=== PATIENT | female | born 1980 | race Asian ===

== ENCOUNTER → 2017-11-18 | Outpatient (CLI) | payer OTHER | END | disposition home or self-care (01) | LOC: C.PATHSPEC 16:26 | PROVIDERS: ATTEND Obstetrics & Gynecology | DX: N84.1 Polyp of cervix uteri (principal) ==

== ENCOUNTER 2023-03-18 10:27 | Inpatient (IN) ==
[2023-03-19] MEDS ORDERED: OXYTOCIN 30 UNITS/500 ML BAG IV PRN ×2 (09:33→20:46)
[2023-03-19] MEDS ORDERED: DINOPROSTONE 10 MG INSERT PV ONE (09:33)
[2023-03-19] MEDS ORDERED: LIDOCAINE 1% LOCAL 20 ML VIAL INFIL PRN (09:33)
--- NOTE | 2023-03-19 09:39 | History & Physical Report ---
Date of Service March 19, 2023 Assessment & Plan (1) Hyperthyroidism: (2) AMA (advanced maternal age) primigravida 35+: Plan: 42 yo at 40 wks, IOL VSS Afebrile FHR reassuring GBS neg Cervix unfavorable Plan to admit, monitor, labs, Cervidil for cervical ripening All questions were answered. Admission and Anticipated Discharge Date Admission Date: March 19, 2023 History of Present Illness Primary Care Provider: Yu Bullard PA-C Patient is a 42 yo at 40 wks, admitted for IOL at term for AMA No complaints No ctxs/ LOF/VB +FM's Her has been complicated by 1) AMA, NIPT negative/ low risk 2) Hyperthyroidism, did not need medication Allergies Allergy/AdvReac Type Severity Reaction Status Date / Time No Known Drug Allergies Allergy Unknown Verified 03/19/23 08:34 adhesive tape AdvReac Severe Rash Verified 03/03/23 15:52 seafood Allergy Unknown Uncoded 03/19/23 08:34 Home Medications Medication Instructions Recorded Confirmed Type prenat.vits,woo,pjl-kvaj-vhctv 1 tab PO DAILY 03/03/23 03/19/23 History Patient History Surgical History H/O wisdom tooth extraction Family History Other Family history of hypertension in father Social History Smoking Status: Never smoker Hx Alcohol Use: No Hx Substance Use: No Preferred Language: Mandarin [place]ian Communication Ability: Effective Vehicle Assembler Required: No Beliefs That Will Affect Care: None marital status: Current Living Situation: Spouse Other Information That Helps Us Care for You: No Feels Safe at Home: Yes Safety Concerns: Feels Safe At This Time Assistive Devices: None 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 No h/o STD's Review of Systems as per Subjective / HPI Physical Exam Constitutional: WD/WN, vitals as above well developed, well nourished and comfortable Gastrointestinal (Abdomen): normal bowel sounds, soft, nontender, no hepatosplenomegaly (Angel[place] 7 lb) Genitourinary: normal external appearance OB Exam Abdomen: + vertex Manual OB Exam: + cervical dilation 1 cm, + cervical effacement 30% and + station high (ballotable) OB Exam Monitor Tracing: + external uterine monitor used and + category I Bed side US: Vertex, FHR 140's, multiple movements seen, AFV normal EFW: 3324 gr Results & Data Vital Signs (Past 12 Hours) Vital Signs Temp Pulse Resp BP 03/19/23 08:32 37.0 C 73 20 111/71
[2023-03-19 10:13] LABS: Hematocrit (blood only) 35.8 % (37.0-47.0); Hemoglobin 12.6 g/dl (12.0-16.0); Mean Corpuscular Hemoglobin 31.7 pg (25.0-34.0); Mean Corpuscular Hgb Conc 35.2 g/dL (32.0-36.0); Mean Corpuscular Volume 89.9 fL (80.0-100.0); Mean Platelet Volume 10.1 fL (9.4-12.4); Platelet Count 219 K/uL (130-400); RDW Coefficient of Variation 13.3 % (11.5-14.5); RDW Standard Deviation 43.8 fL (36.4-46.3); Red Blood Count 3.98 M/uL (4.20-5.40); White Blood Count 7.69 K/ul (4.8-10.8)
[2023-03-19 10:21] LABS: Albumin Globulin Ratio 1.3 (0.9-2); Albumin Level 3.6 gm/dl (3.4-5.0); BUN Creatinine Ratio 22.4 (10-20); Bilirubin,Total 0.4 mg/dl (0.2-1.0); Creatinine Clr Calc Pharmacy 111.9 ml/min; Est GFR (African American) 132.7 ml/min; Est GFR (Non-African American) 114.5 ml/min; Globulin 2.8 gm/dl (2.5-4.0); Potassium 3.6 mmol/L (3.5-5.1); Total Protein 6.4 gm/dl (6.0-8.3)
--- NOTE | 2023-03-19 18:16 | Obstetrical Progress Note ---
Date of Service March 19, 2023 Assessment & Plan Admission and Anticipated Discharge Date Admission Date: March 19, 2023 Subjective Patient is reevaluated She started to feel pain, asking whether it is appropriate to have epidural VE; 4/60%/-2, very soft and stretchable, bulging bag FHR categ I [place] ctxs q 2-6 min Plan for epidural for pain then AROM Results & Data Vital Signs (Past 12 Hours) Vital Signs Temp Pulse Resp BP 03/19/23 14:59 69 03/19/23 14:59 112/73 03/19/23 11:18 20 03/19/23 11:18 37.2 C 20 03/19/23 11:18 72 03/19/23 11:18 99/63 L 03/19/23 08:32 37.0 C 73 20 111/71
[2023-03-19] MEDS: LACTATED RINGER'S 1,000 ML IV PRN ×2 (18:41→19:43)
[2023-03-19] MEDS ORDERED: SODIUM CHLORIDE 0.9% PF INJ 10 ML VIAL ONE (18:50)
[2023-03-19] MEDS ORDERED: fentaNYL citrate PF 100 MCG/2 ML VIAL ONE (18:50)
[2023-03-19] MEDS ORDERED: BUPIVACAINE 0.25% PF 30 ML VIAL ONE (18:51)
[2023-03-19] MEDS ORDERED: LIDOCAINE 2%/EPINEPHRINE 1:200,000 20 ML PF ONE (18:51)
[2023-03-19] MEDS ORDERED: fentaNYL 2MCG/ML ROPIVACAINE 1.25MG/ML 100 ML BAG EPI ONE (18:51)
[2023-03-19] MEDS ORDERED: ePHEDrine sulfate 50 MG/ML AMP ONE (19:04)
--- NOTE | 2023-03-19 19:35 | Anesthesiology Consultation ---
Date of Service March 19, 2023 Assessment & Plan Chart Review Chart Review: Acceptable Risk for Labor Epidural Consults Requested none ASA ASA2 Proposed Anesthesia Anesthesia Type: Labor Epidural Risk / Benefits Reviewed With: PT / POA / Parent / Guardian, Accepts Plan and Informed Consent Obtained History Height/Weight Height: 5 ft 1 in Weight: 67.132 kg Allergies Allergy/AdvReac Type Severity Reaction Status Date / Time No Known Drug Allergies Allergy Unknown Verified 03/19/23 08:34 adhesive tape AdvReac Severe Rash Verified 03/03/23 15:52 seafood Allergy Unknown Uncoded 03/19/23 08:34 Medications Home Medications Medication Instructions Recorded Confirmed Last Taken prenat.vits,woo,ess-lgqs-bntfy 1 tab PO DAILY 03/03/23 03/19/23 03/18/23 09:00 Active Medications Generic Name Dose Route Start Last Admin Trade Name Freq PRN Reason Stop Dose Admin Lactated Ringer's 1,000 mls @ 150 mls/hr 03/19/23 09:33 03/19/23 19:43 Lr IV 03/21/23 09:32 150 mls/hr .[id number] PRN Administration L&D Protocol Protocol NPO Date Last Intake of Fluids: 03/19/23 Time Last Intake of Fluids: 18:00 Date Last Intake of Solids: 03/19/23 Time Last Intake of Solids: 07:00 Past Medical History Medical History (Updated 03/19/23 @ 19:33 by Susan Diop DO) Graves disease Hyperthyroidism Exercise / Class Metabolic Activity II 4-5 Yardwork/Stairs/Walk up hill Past Family History Family History Other Family history of hypertension in father Past Surgical History Surgical History H/O wisdom tooth extraction Past Anesthesia History No Hx of Anesthesia Complications and No Family Hx of Anesthesia Complications History of PONV No Hx of PONV and No Hx of Motion Sickness Social History Smoking Status: Never smoker Hx Alcohol Use: No Alcohol type: beer Hx Substance Use: No substance use type: does not use Physical Exam Vital Signs Last Vital Signs Temp 37.2 C 03/19/23 11:18 Pulse 74 03/19/23 19:31 Resp 20 03/19/23 11:18 BP 109/70 03/19/23 19:27 Pulse Ox 98 03/19/23 19:31 ENMT Mouth: + small oral opening; no TMJ abnormality Thyromental Distance: > or= 3.5 Finger Breadths Mallampati Class: III Neck normal visual inspection and trachea midline; neck extension not limited Respiratory normal respiratory effort Auscultation: lungs clear to auscultation bilaterally Cardiovascular Rate/Rhythm: regular rate and regular rhythm Heart Sounds: no murmur Musculoskeletal Spine: normal cervical ROM Extremities: full ROM of extremities Neurologic moves all extremities Motor/Sensory: + sensory deficit (rle radic l4and 5) Psychiatric Orientation: alert and oriented x 3 Testing Laboratory Results 03/19/23 09:46 03/19/23 09:46
[2023-03-19] MEDS ORDERED: ONDANSETRON INJ 2 MG/ML 2 ML VIAL IV PRN (20:10)
[2023-03-19] MEDS ORDERED: ROPIVACAINE 0.5% PF 5 MG/ML 20 ML VIAL EPI PRN (20:10)
[2023-03-19] MEDS ORDERED: LIDOCAINE 2%/EPINEPHRINE 1:200,000 20 ML PF EPI STA (20:10)
[2023-03-19] MEDS ORDERED: METOCLOPRAMIDE HCL 20 MG in SODIUM CHLORIDE 0.9% 50 ML IV PRN (20:10)
[2023-03-19] MEDS ORDERED: fentaNYL citrate PF 100 MCG/2 ML VIAL EPI PRN (20:10)
[2023-03-19] MEDS ORDERED: diphenhydrAMINE 50 MG/ML VIAL IV PRN (20:10)
[2023-03-19] MEDS ORDERED: SODIUM CHLORIDE 0.9% PF INJ 10 ML VIAL EPI STA (20:10)
[2023-03-19] MEDS ORDERED: BUPIVACAINE 0.25% PF 30 ML VIAL EPI PRN (20:10)
[2023-03-19] MEDS ORDERED: NALOXONE HCL 1 MG in SODIUM CHLORIDE 0.9% 1000ML 1,000 ML IV PRN (20:10)
[2023-03-19] MEDS ORDERED: fentaNYL citrate PF 100 MCG/2 ML VIAL EPI STA (20:10)
[2023-03-19] MEDS ORDERED: ePHEDrine sulfate 50 MG/ML AMP IV PRN (20:10)
[2023-03-19] MEDS ORDERED: BUPIVACAINE 0.25% PF 30 ML VIAL EPI STA (20:10)
[2023-03-19] MEDS ORDERED: NALOXONE HCL 0.4 MG/1 ML VIAL/CARP IV PRN (20:10)
[2023-03-19] MEDS ORDERED: fentaNYL 2MCG/ML ROPIVACAINE 1.25MG/ML 100 ML BAG EPI PRN (20:10)
[2023-03-19] MEDS ORDERED: NALBUPHINE HCL INJ 10 MG/ML AMP IV PRN (20:10)
[2023-03-19] MEDS ORDERED: SODIUM CHLORIDE 0.9% PF INJ 10 ML VIAL EPI PRN (20:10)
[2023-03-19] MEDS ORDERED: LIDOCAINE 2% MPF LOCAL 5 ML VIAL EPI PRN (20:10)
--- NOTE | 2023-03-19 20:46 | Obstetrical Progress Note ---
Date of Service March 19, 2023 Assessment & Plan Admission and Anticipated Discharge Date Admission Date: March 19, 2023 Subjective Patient is comfortable now Received epidural for pain VE; 5/ 50%/ -2, bulging bag, AROM'ed claer fluid, cervidil was removed FHR categ I [place] ctxs q 2-5 min Continue to monitor closely Anticipate Results & Data Vital Signs (Past 12 Hours) Vital Signs Temp Pulse Resp BP Pulse Ox 03/19/23 19:00 36.5 C 18 03/19/23 20:41 98 03/19/23 20:41 61 03/19/23 20:39 58 L 03/19/23 20:39 100/57 L 03/19/23 20:36 98 03/19/23 20:36 62 03/19/23 20:32 59 L 03/19/23 20:32 100/56 L 03/19/23 20:31 98 03/19/23 20:31 61 03/19/23 20:26 99 03/19/23 20:26 65 03/19/23 20:27 66 03/19/23 20:27 93/54 L 03/19/23 20:21 98 03/19/23 20:21 63 03/19/23 20:22 63 03/19/23 20:22 98/56 L 03/19/23 20:17 62 03/19/23 20:17 104/58 L 03/19/23 20:16 99 03/19/23 20:16 67 03/19/23 20:14 67 03/19/23 20:14 107/59 L 03/19/23 20:11 99 03/19/23 20:11 67 03/19/23 20:10 69 03/19/23 20:10 102/61 03/19/23 20:07 67 03/19/23 20:07 103/60 03/19/23 20:06 99 03/19/23 20:06 80 03/19/23 20:05 71 03/19/23 20:05 104/61 03/19/23 20:03 80 03/19/23 20:03 109/59 L 03/19/23 20:01 99 03/19/23 20:01 76 03/19/23 20:01 104/60 03/19/23 20:00 18 03/19/23 20:00 18 05 19:59 80 0505 19:59 106/59 L 05 19:52 18 05 19:52 18 05 19:57 81 05 19:57 106/58 L 03/19/23 19:56 99 05 19:56 71 05 19:56 107/55 L 05 19:53 76 05 19:53 99/63 L 05 19:51 98 05 19:51 75 05 19:52 80 05 19:52 99/64 L 05 19:46 98 05 19:46 79 05 19:41 98 05 19:41 80 05 19:36 98 05 19:36 73 05 19:31 98 05 19:31 74 05 19:27 75 0505 19:27 109/70 05 19:26 99 0505 19:26 76 0505 19:16 98 0505 19:16 75 0505 19:11 98 05 19:11 74 05 19:06 99 05 19:06 77 05 19:01 98 05 19:01 73 05 18:56 98 05 18:56 70 05 18:57 70 0505 18:57 113/69 05 14:59 69 0505 14:59 112/73 05 11:18 20 05 11:18 37.2 C 20 03/19/23 11:18 72 05 11:18 99/63 L
--- NOTE | 2023-03-19 22:29 | Obstetrical Progress Note ---
Date of Service March 19, 2023 Assessment & Plan Admission and Anticipated Discharge Date Admission Date: March 19, 2023 Subjective Patient is reevaluated Comfortable VE: 6-7/ 80%/-1, LOP FHR categ I [place] cxts q 2-4 min Continue to monitor closely Results & Data Vital Signs (Past 12 Hours) Vital Signs Temp Pulse Resp BP Pulse Ox 03/19/23 19:00 36.5 C 18 03/19/23 22:10 18 03/19/23 22:10 36.7 C 18 03/19/23 22:21 98 03/19/23 22:21 69 03/19/23 22:20 65 03/19/23 22:20 94/55 L 03/19/23 22:16 97 03/19/23 22:16 72 03/19/23 22:11 97 03/19/23 22:11 68 03/19/23 22:06 96 03/19/23 22:06 78 03/19/23 22:04 68 03/19/23 22:04 91/50 L 03/19/23 22:01 96 03/19/23 22:01 68 03/19/23 21:56 98 03/19/23 21:56 75 03/19/23 21:04 16 03/19/23 21:04 16 03/19/23 21:51 96 03/19/23 21:51 67 03/19/23 21:49 67 03/19/23 21:49 92/50 L 03/19/23 21:46 97 03/19/23 21:46 67 03/19/23 21:41 96 03/19/23 21:41 68 03/19/23 21:36 96 03/19/23 21:36 67 03/19/23 21:34 67 03/19/23 21:34 88/51 L 03/19/23 21:31 97 03/19/23 21:31 67 03/19/23 21:26 97 03/19/23 21:26 68 03/19/23 21:21 97 03/19/23 21:21 66 03/19/23 21:16 98 03/19/23 21:16 67 03/19/23 21:17 68 03/19/23 21:17 107/54 L 03/19/23 21:12 68 03/19/23 21:12 104/65 0505 21:11 98 0505 21:11 68 05 21:10 68 05 21:10 107/64 05 21:08 69 05 21:08 106/68 05 21:06 99 05 21:06 68 05 21:06 109/65 0505 21:04 67 0505 21:04 115/70 05 21:01 100 05 21:01 61 05 21:00 62 0505 21:00 100/62 05 20:58 57 L 05 20:58 82/52 L 05 20:56 98 05 20:56 60 05 20:55 68 0505 20:55 75/49 L 0505 20:51 97 0505 20:51 62 0505 20:46 97 0505 20:46 68 0505 20:41 98 0505 20:41 61 0505 20:39 58 L 0505 20:39 100/57 L 0505 20:36 98 0505 20:36 62 05 20:32 59 L 0505 20:32 100/56 L 0505 20:31 98 0505 20:31 61 0505 20:26 99 0505 20:26 65 0505 20:27 66 0505 20:27 93/54 L 0505 20:21 98 0505 20:21 63 0505 20:22 63 0505 20:22 98/56 L 0505 20:17 62 0505 20:17 104/58 L 0505 20:16 99 0505 20:16 67 0505 20:14 67 05/05 20:14 107/59 L 0505 20:11 99 0504/06 20:11 67 05/05/23 20:10 69 05 20:10 102/61 05 20:07 67 05 20:07 103/60 05 20:06 99 05 20:06 80 05 20:05 71 03/19/23 20:05 104/61 05 20:03 80 05 20:03 109/59 L 03/19/23 20:01 99 05 20:01 76 05 20:01 104/60 05 20:00 18 05 20:00 18 03/19/23 19:59 80 05 19:59 106/59 L 05 19:52 18 05 19:52 18 03/19/23 19:57 81 05 19:57 106/58 L 03/19/23 19:56 99 05 19:56 71 05 19:56 107/55 L 05 19:53 76 05 19:53 99/63 L 05 19:51 98 05 19:51 75 05 19:52 80 05 19:52 99/64 L 05 19:46 98 05 19:46 79 05 19:41 98 05 19:41 80 05 19:36 98 05 19:36 73 05 19:31 98 0505 19:31 74 0505 19:27 75 0505 19:27 109/70 0505 19:26 99 0505 19:26 76 0505 19:16 98 05 19:16 75 05 19:11 98 0505 19:11 74 05 19:06 99 05 19:06 77 0505 19:01 98 05 19:01 73 0505 18:56 98 05 18:56 70 05 18:57 70 03/19/23 18:57 113/69 03/19/23 14:59 69 03/19/23 14:59 112/73 03/19/23 11:18 20 03/19/23 11:18 37.2 C 20 03/19/23 11:18 72 03/19/23 11:18 99/63 L
[2023-03-20] MEDS: LACTATED RINGER'S 1,000 ML IV PRN (00:21)
[2023-03-20] MEDS ORDERED: MINERAL OIL 30 ML UDC ONE (01:18)
--- NOTE | 2023-03-20 01:23 | Obstetrical Progress Note ---
Date of Service March 20, 2023 Assessment & Plan Admission and Anticipated Discharge Date Admission Date: March 19, 2023 Subjective FHR had been categ I and had one deceleration Head is found to be low in vagina, +3 changed her position and FHR recovered to 130's with moderate variability. Start pushing. Results & Data Vital Signs (Past 12 Hours) Vital Signs Temp Pulse Resp BP Pulse Ox 03/19/23 19:00 36.5 C 18 03/20/23 01:16 74 100 03/20/23 01:11 94 H 100 03/20/23 01:06 74 98 03/20/23 01:03 71 110/63 03/20/23 01:01 67 95 03/20/23 00:56 63 96 03/20/23 00:51 63 96 03/20/23 00:50 66 92/56 L 03/20/23 00:48 64 76/45 L 03/20/23 00:46 62 96 03/20/23 00:37 18 03/20/23 00:37 36.7 C 18 03/20/23 00:41 63 97 03/20/23 00:36 64 97 03/20/23 00:33 61 98/60 L 03/20/23 00:31 64 97 03/20/23 00:26 61 96 03/20/23 00:21 63 96 03/20/23 00:19 69 89/53 L 03/20/23 00:16 64 96 03/20/23 00:11 64 97 03/20/23 00:06 66 97 03/20/23 00:03 66 91/52 L 03/20/23 00:01 65 97 03/19/23 23:53 16 03/19/23 23:53 16 03/19/23 23:56 97 03/19/23 23:56 66 03/19/23 23:51 97 03/19/23 23:51 68 03/19/23 23:49 66 03/19/23 23:49 103/66 03/19/23 23:46 98 03/19/23 23:46 70 03/19/23 23:41 97 03/19/23 23:41 67 03/19/23 23:36 97 03/19/23 23:36 69 03/19/23 23:34 64 03/19/23 23:34 101/60 05 23:31 97 05 23:31 69 05 23:26 98 05 23:26 67 05 23:21 98 05 23:21 65 05 23:19 62 05 23:19 96/54 L 05 23:16 97 05 23:16 64 05 23:11 97 05 23:11 70 05 23:04 16 05 23:04 36.8 C 16 03/19/23 23:06 98 05 23:06 68 05 23:03 61 05 23:03 93/58 L 03/19/23 23:01 97 05 23:01 67 05 22:56 97 05 22:56 63 05 22:51 97 05 22:51 62 05 22:48 63 0505 22:48 87/52 L 05 22:46 97 0505 22:46 63 0505 22:41 97 05 22:41 65 05 22:36 98 05 22:36 67 05 22:33 70 05 22:33 92/54 L 05 22:31 98 05 22:31 70 05 22:26 97 05 22:26 67 0505 22:10 18 05 22:10 36.7 C 18 05 22:21 98 0505 22:21 69 0505 22:20 65 0505 22:20 94/55 L 05 22:16 97 05 22:16 72 05 22:11 97 05 22:11 68 05 22:06 96 05 22:06 78 05 22:04 68 05 22:04 91/50 L 05 22:01 96 05 22:01 68 0505 21:56 98 0505 21:56 75 0505 21:04 16 05 21:04 16 05 21:51 96 05 21:51 67 05 21:49 67 0505 21:49 92/50 L 0505 21:46 97 0505 21:46 67 0505 21:41 96 0505 21:41 68 0505 21:36 96 0505 21:36 67 0505 21:34 67 0505 21:34 88/51 L 05 21:31 97 0505 21:31 67 05 21:26 97 05 21:26 68 05 21:21 97 0505 21:21 66 0505 21:16 98 05 21:16 67 0505 21:17 68 05 21:17 107/54 L 0505 21:12 68 0505 21:12 104/65 0505 21:11 98 05 21:11 68 0505 21:10 68 05 21:10 107/64 05 21:08 69 0505 21:08 106/68 0505 21:06 99 0505 21:06 68 0505 21:06 109/65 0505 21:04 67 0505 21:04 115/70 0505 21:01 100 0505 21:01 61 0505 21:00 62 0505 21:00 100/62 0505 20:58 57 L 0505 20:58 82/52 L 0505 20:56 98 0505 20:56 60 05/05 20:55 68 0505 20:55 75/49 L 0505 20:51 97 0505 20:51 62 05/05 20:46 97 05 20:46 68 05 20:41 98 05 20:41 61 05 20:39 58 L 05 20:39 100/57 L 05 20:36 98 05 20:36 62 05 20:32 59 L 05 20:32 100/56 L 05 20:31 98 05 20:31 61 05 20:26 99 05 20:26 65 05 20:27 66 05 20:27 93/54 L 05 20:21 98 05 20:21 63 05 20:22 63 05 20:22 98/56 L 05 20:17 62 05 20:17 104/58 L 05 20:16 99 05 20:16 67 05 20:14 67 05 20:14 107/59 L 05 20:11 99 05 20:11 67 05 20:10 69 05 20:10 102/61 05 20:07 67 05 20:07 103/60 05 20:06 99 05 20:06 80 05 20:05 71 05 20:05 104/61 05 20:03 80 0505 20:03 109/59 L 05 20:01 99 05 20:01 76 0505 20:01 104/60 0505 20:00 18 05 20:00 18 05 19:59 80 0505 19:59 106/59 L 05 19:52 18 05 19:52 18 05 19:57 81 0505 19:57 106/58 L 0505 19:56 99 05 19:56 71 05 19:56 107/55 L 05 19:53 76 0505 19:53 99/63 L 05 19:51 98 05 19:51 75 05 19:52 80 05 19:52 99/64 L 05 19:46 98 05 19:46 79 05 19:41 98 05 19:41 80 05 19:36 98 05 19:36 73 05 19:31 98 05 19:31 74 0505 19:27 75 05 19:27 109/70 05 19:26 99 05 19:26 76 05 19:16 98 05 19:16 75 05 19:11 98 05 19:11 74 05 19:06 99 05 19:06 77 0505 19:01 98 0505 19:01 73 05 18:56 98 0505 18:56 70 0505 18:57 70 0505 18:57 113/69 05 14:59 69 05/04/06 14:59 112/73
[2023-03-20] MEDS ORDERED: ceFAZolin 2000MG 2,000 MG/15 ML SYR IV ONE (02:30)
[2023-03-20] MEDS ORDERED: HYDROCORTISONE ACETATE 25 MG SUPP PR PRN (03:03)
[2023-03-20] MEDS ORDERED: OXYTOCIN 30 UNITS/500 ML BAG IV PRN (03:03)
[2023-03-20] MEDS ORDERED: BENZOCAINE 20% AER SPR 82.5 GM CAN EXT PRN (03:03)
[2023-03-20] MEDS ORDERED: bisacodyL 10 MG SUPP PR PRN (03:03)
[2023-03-20] MEDS ORDERED: ACETAMINOPHEN 325 MG TAB PO PRN (03:03)
[2023-03-20] MEDS ORDERED: DIPHTHERIA/TETANUS/PERTUSSIS 0.5mL SYR/VIAL (Age 7+yrs) IM ONE (03:03)
[2023-03-20] MEDS ORDERED: MEASLES, MUMPS & RUBELLA VIRUS VIAL SQ ONE (03:03)
[2023-03-20] MEDS ORDERED: oxyCODONE/ACETAMINOPHEN 5mg/325mg TAB PO PRN (03:03)
--- NOTE | 2023-03-20 03:08 | Delivery Summary ---
Vaginal Delivery Summary Date of Service March 20, 2023 Vaginal Delivery Summary The patient was found to be fluid dilated and desired to push. She pushed for about an hour and delivered the head without difficulty. Shoulders were delivered with minimal traction and there was a nuchal cord around the neck x1 and the body cord. Those were reduced while delivering the body and baby was handed off to the mother. The mouth and nose were suctioned and cord was clamped times and cut. Then the cord blood was obtained. The vagina and perineum were checked for lacerations. There was a 3rd degree perineal laceration. It was confirmed with rectal exam. Allis clamps were used to grasp external sphincter muscles on both sides and brought to the midline. Then cervical muscles were repaired with [id number] stitches x4 around those clamps. Then the clamps were removed and rectal exam was repeated good sphincter integrity and tone were noted. The gloves were changed and perineal body muscles were reapproximated supporting the sphincter area. Then another 2-0 Vicryl was used to repair vagina mucosa on both sides of vagina sulcus brought to the midline. Then the skin was closed in a subcuticular fashion with the same Vicryl. Excellent hemostasis was achieved. Rest of the vagina and labia were intact. The placenta was found to be in the vagina, delivered spontaneously as intact and complete. Uterus was explored and found to be empty, lower segment was cleared of all clots and debris's, fundus was firm and EBL was 300 mL. The mom and baby tolerated procedure well. The sponge needle instrument count was correct x2. It was a viable female , Apgars 8/9 and weight is pending. No complications happened and I was present during whole procedure.
--- NOTE | 2023-03-20 05:23 | Anesthesia Procedure Note ---
Date of Service March 20, 2023 Anesthesia Post Epidural Note Vital Signs Vital Signs: Temp Pulse Resp BP Pulse Ox 36.8 C 88 16 80/51 L 99 03/20/23 02:56 03/20/23 05:13 03/20/23 04:56 03/20/23 05:13 03/20/23 02:56 Pain Intensity Abdomen: Pain Intensity: 0 Notes Mental Status: alert / awake / arousable and participated in evaluation Nausea / Vomiting: adequately controlled Pain: adequately controlled Airway Patency, RR, SpO2: stable & adequate BP & HR: stable & adequate Hydration State: stable & adequate Neuraxial Anesthesia: was administered and sensory block is resolving Anesthetic Complications: no major complications apparent and Pt Satisfied with anesthetic care Epidural: Removed without complications and With tip intact
[2023-03-20] MEDS ORDERED: SODIUM CHLORIDE 0.9% 1000ML 1,000 ML IV SCH (05:30)
[2023-03-20 05:50] LABS: Basophils # (auto) 0.02 K/uL (0-0.2); Basophils % (auto) 0.1 %; Eosinophils # (auto) 0.04 K/uL (0-0.50); Eosinophils % (auto) 0.3 %; Hematocrit (blood only) 29.7 % (37.0-47.0); Hemoglobin 10.4 g/dl (12.0-16.0); Immature Granulocytes # (auto) 0.07 K/uL (0.01-0.20); Immature Granulocytes % (auto) 0.5 %; Mean Corpuscular Hemoglobin 31.6 pg (25.0-34.0); Mean Corpuscular Volume 90.3 fL (80.0-100.0); Mean Platelet Volume 9.8 fL (9.4-12.4); Monocytes # (auto) 0.71 K/uL (0.11-0.59); Monocytes % (auto) 5.3 %; Neutrophils # (auto) 11.31 K/uL (1.40-6.50); Neutrophils % (auto) 84.8 %; Platelet Count 171 K/uL (130-400); RDW Coefficient of Variation 13.2 % (11.5-14.5); RDW Standard Deviation 43.3 fL (36.4-46.3); Red Blood Count 3.29 M/uL (4.20-5.40); White Blood Count 13.35 K/ul (4.8-10.8)
[2023-03-20] MEDS: IBUPROFEN 600 MG TAB PO PRN ×3 (08:52→23:33)
[2023-03-20] MEDS: PRENATAL VITAMIN 1 TAB PO SCH (12:41)
[2023-03-20] MEDS: FERROUS SULFATE 325 MG TAB PO SCH (12:42)
[2023-03-20] MEDS: DOCUSATE SODIUM 100 MG CAP PO SCH ×2 (12:42→20:39)
[2023-03-21] MEDS: IBUPROFEN 600 MG TAB PO PRN ×4 (05:23→21:04)
[2023-03-21 06:17] LABS: Hematocrit (blood only) 29.1 % (37.0-47.0); Hemoglobin 9.9 g/dl (12.0-16.0); Mean Corpuscular Hemoglobin 31.5 pg (25.0-34.0); Mean Corpuscular Volume 92.7 fL (80.0-100.0); Mean Platelet Volume 9.6 fL (9.4-12.4); Platelet Count 154 K/uL (130-400); RDW Coefficient of Variation 13.6 % (11.5-14.5); RDW Standard Deviation 45.1 fL (36.4-46.3); Red Blood Count 3.14 M/uL (4.20-5.40); White Blood Count 11.06 K/ul (4.8-10.8)
[2023-03-21] MEDS: FERROUS SULFATE 325 MG TAB PO SCH (07:54)
[2023-03-21] MEDS: PRENATAL VITAMIN 1 TAB PO SCH (07:54)
[2023-03-21] MEDS: DOCUSATE SODIUM 100 MG CAP PO SCH ×2 (07:54→21:05)
--- NOTE | 2023-03-21 08:38 | Obstetrical Progress Note ---
Date of Service March 21, 2023 Assessment & Plan (1) Normal course: Continue routine care Anticipate discharge home tomorrow Subjective Ambulation: ambulating normally Voiding: no voiding problems Passing Gas:: Yes Diet Tolerance:: regular diet Lochia:: Small Feeding Type:: bottle feeding Current Pain Level(1-10): 1 Doing well, no complaints at this time Physical Exam Constitutional WD/WN, vitals as above Respiratory normal respiratory effort, lungs clear to auscultation Cardiovascular RRR, no murmur, no edema Gastrointestinal (Abdomen) normal bowel sounds, soft, nontender, no hepatosplenomegaly Results & Data Vital Signs (Past 12 Hours) Vital Signs Temp Pulse Resp BP Pulse Ox O2 Del Method 03/21/23 08:00 36.4 C L 75 18 92/54 L 98 Room Air 03/20/23 23:14 36.3 C L 90 18 98/63 L 98 Room Air Laboratory Results Laboratory Results WBC 11.06 K/ul (4.8-10.8) H 03/21/23 05:58 RBC 3.14 M/uL (4.20-5.40) L 03/21/23 05:58 Hgb 9.9 g/dl (12.0-16.0) L 03/21/23 05:58 Hct 29.1 % (37.0-47.0) L 03/21/23 05:58 MCV 92.7 fL (80.0-100.0) 03/21/23 05:58 MCH 31.5 pg (25.0-34.0) 03/21/23 05:58 MCHC 34.0 g/dL (32.0-36.0) 03/21/23 05:58 RDW Std Deviation 45.1 fL (36.4-46.3) 03/21/23 05:58 RDW Coeff of [place] 13.6 % (11.5-14.5) 03/21/23 05:58 Plt Count 154 K/uL (130-400) 03/21/23 05:58 MPV 9.6 fL (9.4-12.4) 03/21/23 05:58 Immature Gran % (Auto) 0.5 % 03/20/23 05:28 Neut % (Auto) 84.8 % 03/20/23 05:28 Lymph % (Auto) 9.0 % 03/20/23 05:28 [place] % (Auto) 5.3 % 03/20/23 05:28 Eos % (Auto) 0.3 % 03/20/23 05:28 Baso % (Auto) 0.1 % 03/20/23 05:28 Neut # (Auto) 11.31 K/uL (1.40-6.50) H 03/20/23 05:28 Lymph # (Auto) 1.20 K/uL (1.2-3.4) 03/20/23 05:28 [place] # (Auto) 0.71 K/uL (0.11-0.59) H 03/20/23 05:28 Eos # (Auto) 0.04 K/uL (0-0.50) 03/20/23 05:28 Baso # (Auto) 0.02 K/uL (0-0.2) 03/20/23 05: Immature Gran # (Auto) 0.07 K/uL (0.01-0.20) 03/20/23 05:28 Sodium 135 mmol/L (136-145) L 03/19/23 09:46 Potassium 3.6 mmol/L (3.5-5.1) 03/19/23 09:46 Chloride 108 mmol/L (98-107) H 03/19/23 09:46 Carbon Dioxide 19 mmol/L (21-32) L 03/19/23 09:46 Anion Gap 8 (3-11) 03/19/23 09:46 BUN 13 mg/dl (6-23) 03/19/23 09:46 Creatinine 0.58 mg/dl (0.6-1.2) L 03/19/23 09:46 Est Cr Clr Drug Dosing 111.9 ml/min 03/19/23 09:46 Est GFR ( Amer) 132.7 ml/min 03/19/23 09:46 Est GFR (Non-Af Amer) 114.5 ml/min 03/19/23 09:46 BUN/Creatinine Ratio 22.4 (10-20) H 03/19/23 09:46 Glucose 86 mg/dl (70-99(Fasting)) 03/19/23 09:46 Calcium 9.0 mg/dl (8.6-10.3) 03/19/23 09:46 Total Bilirubin 0.4 mg/dl (0.2-1.0) 03/19/23 09:46 AST 14 U/L (13-39) 03/19/23 09:46 ALT 8 U/L (7-52) 03/19/23 09:46 Alkaline Phosphatase 117 U/L (34-104) H 03/19/23 09:46 Total Protein 6.4 gm/dl (6.0-8.3) 03/19/23 09:46 Albumin 3.6 gm/dl (3.4-5.0) 03/19/23 09:46 Globulin 2.8 gm/dl (2.5-4.0) 03/19/23 09:46 Albumin/Globulin Ratio 1.3 (0.9-2) 03/19/23 09:46 SARS-CoV-2, RNA, NAAT NEGATIVE (NEGATIVE) 03/19/23 Unknown
[2023-03-21] MEDS ORDERED: bisacodyL 5 MG TABEC PO SCH (20:00)
[2023-03-22 06:51] LABS: Hemoglobin 9.7 g/dl (12.0-16.0)
[2023-03-22] MEDS: DOCUSATE SODIUM 100 MG CAP PO SCH (08:38)
[2023-03-22] MEDS: PRENATAL VITAMIN 1 TAB PO SCH (08:38)
[2023-03-22] MEDS: FERROUS SULFATE 325 MG TAB PO SCH (08:38)
[2023-03-22] MEDS: IBUPROFEN 600 MG TAB PO PRN (08:39)
--- NOTE | 2023-03-22 11:19 | Obstetrical Progress Note ---
Date of Service March 22, 2023 Subjective Ambulation: ambulating normally Voiding: no voiding problems Passing Gas:: Yes Diet Tolerance:: regular diet Feeding Type:: breast feeding Current Pain Level(1-10): 0 doing well Physical Exam Constitutional WD/WN, vitals as above Gastrointestinal (Abdomen) Inspection/Auscultation: abdomen normal to inspection Musculoskeletal Extremities: extremities normal to inspection Skin no rashes, warm and dry Neurologic patellar DTR's 2+ bilat, sensation intact Psychiatric A+Ox3, euthymic affect Results & Data Vital Signs (Past 12 Hours) Vital Signs Temp Pulse Resp BP Pulse Ox O2 Del Method 03/22/23 07:30 36.5 C 81 18 95/60 L 98 Room Air Laboratory Results 03/19/23 03/19/23 03/19/23 09:46 09:46 Unknown WBC 7.69 RBC 3.98 L Hgb 12.6 Hct 35.8 L MCV 89.9 MCH 31.7 MCHC 35.2 RDW Std Deviation 43.8 RDW Coeff of [place] 13.3 Plt Count 219 MPV 10.1 Immature Gran % (Auto) Neut % (Auto) Lymph % (Auto) [place] % (Auto) Eos % (Auto) Baso % (Auto) Neut # (Auto) Lymph # (Auto) [place] # (Auto) Eos # (Auto) Baso # (Auto) Immature Gran # (Auto) Sodium 135 L Potassium 3.6 Chloride 108 H Carbon Dioxide 19 L Anion Gap 8 BUN 13 Creatinine 0.58 L Est Cr Clr Drug Dosing 111.9 Est GFR ( Amer) 132.7 Est GFR (Non-Af Amer) 114.5 BUN/Creatinine Ratio 22.4 H Glucose 86 Calcium 9.0 Total Bilirubin 0.4 AST 14 ALT 8 Alkaline Phosphatase 117 H Total Protein 6.4 Albumin 3.6 Globulin 2.8 Albumin/Globulin Ratio 1.3 SARS-CoV-2, RNA, NAAT NEGATIVE 03/20/23 03/21/23 03/22/23 05:28 05:58 06:02 WBC 13.35 H 11.06 H RBC 3.29 L 3.14 L Hgb 10.4 L 9.9 L 9.7 L Hct 29.7 L 29.1 L 29.0 L MCV 90.3 92.7 MCH 31.6 31.5 MCHC 35.0 34.0 RDW Std Deviation 43.3 45.1 RDW Coeff of [place] 13.2 13.6 Plt Count 171 154 MPV 9.8 9.6 Immature Gran % (Auto) 0.5 Neut % (Auto) 84.8 Lymph % (Auto) 9.0 [place] % (Auto) 5.3 Eos % (Auto) 0.3 Baso % (Auto) 0.1 Neut # (Auto) 11.31 H Lymph # (Auto) 1.20 [place] # (Auto) 0.71 H Eos # (Auto) 0.04 Baso # (Auto) 0.02 Immature Gran # (Auto) 0.07 Sodium Potassium Chloride Carbon Dioxide Anion Gap BUN Creatinine Est Cr Clr Drug Dosing Est GFR ( Amer) Est GFR (Non-Af Amer) BUN/Creatinine Ratio Glucose Calcium Total Bilirubin AST ALT Alkaline Phosphatase Total Protein Albumin Globulin Albumin/Globulin Ratio SARS-CoV-2, RNA, NAAT
== END 2023-03-22 14:35 | disposition home or self-care (01) | DRG 768 ==
LOC: 4S1 03-19 08:17 → 4E2 03-20 09:02